=== PATIENT | female | born 1970 ===

== ENCOUNTER 2019-05-05 06:00 | Day surgery (SDC) | payer OTHER ==
[~2019-05-05 06:00] MED LIST: FEMARA2.5 MG
== END 2019-05-05 17:50 | disposition home or self-care (01) ==
LOC: CIR.AMB 06:00
PROVIDERS: Plastic Surgery; Surgery
PROC: C71L1ZZ Planar Nuclear Medicine Imaging of Upper Chest Lymphatics using Technetium 99m (Tc-99m) (ICD-10-PCS; 2019-05-05)
PROC: 0HBV0ZZ Excision of Bilateral Breast, Open Approach (ICD-10-PCS; 2019-05-05)
PROC: 0HRT076 Replacement of Right Breast using Transverse Rectus Abdominis Myocutaneous Flap, Open Approach (ICD-10-PCS; 2019-05-05)
PROC: 0HBT0ZZ Excision of Right Breast, Open Approach (ICD-10-PCS; principal; 2019-05-05 07:00)
PROC: 07B50ZZ Excision of Right Axillary Lymphatic, Open Approach (ICD-10-PCS; 2019-05-05 07:00)
DX: C50.411 Malignant neoplasm of upper-outer quadrant of right female breast (principal); N62 Hypertrophy of breast; L98.7 Excessive and redundant skin and subcutaneous tissue
CPT/HCPCS: 19301; 38525; 38792; 19318; 14000; 78195; A9541

== ENCOUNTER 2019-06-06 07:15 | Outpatient (CLI) | payer OTHER | END 2019-06-06 07:21 | disposition home or self-care (01) | LOC: MAMO-SONO 07:15 → SONOGRAMA 07:15 | DX: R19.00 Intra-abdominal and pelvic swelling, mass and lump, unspecified site (principal) ==